=== PATIENT | male | born 1985 | race Caucasian/White ===

== ENCOUNTER 2024-07-10 16:10 | Observation (INO) ==
[2024-07-10] MEDS ORDERED: Ondansetron ODT 4 mg TAB 4 MG TAB SL ONE (16:33)
[2024-07-10] MEDS: Ondansetron 4 mg VIAL 2 MG/ML 2 ml VIAL IV ONE (16:43)
[2024-07-10 16:49] LABS: ABS Basophils 0.1 10^3/uL (0.0-0.1); ABS Lymphocytes 0.8 10^3/uL (1.0-4.8); ABS Monocytes 0.5 10^3/uL (0.0-1.1); ABS Neutrophils 9.4 10^3/uL (1.5-7.6); Eosinophil % 0.1 %; Hematocrit 37.9 % (38-53); Hemoglobin 12.7 g/dL (13.2-16.3); Lymphocyte % 7.7 %; Mean Corpuscular Hgb Conc 33.5 g/dL (31-36); Mean Corpuscular Volume 89.7 fL (80-97); Mean Platelet Volume 8.9 fL (7.5-11.2); Platelet Count 311 10^3/uL (150-450); Red Blood Count 4.23 10^6/uL (4.06-5.63); Red Cell Distribution Width 13.8 % (12-17); White Blood Count 10.8 10^3/uL (3.6-10.2)
[2024-07-10 16:56] LABS: Urine Appearance Clear; Urine Bilirubin Negative (Negative); Urine Blood Negative (Negative); Urine Color Light-Yellow; Urine Glucose Negative (Negative); Urine Ketones Negative (Negative); Urine Nitrite Negative (Negative); Urine Protein Negative (Negative); Urine Urobilinogen Negative (Negative)
[2024-07-10 17:44] LABS: Albumin 4.5 g/dL (3.2-5.2); Albumin/Globulin Ratio 1.7 (1-3); C Reactive Protein 35.77 mg/L (<8.01); Creatinine, Serum 0.69 mg/dL (0.67-1.17); Globulin 2.6 g/dL (2-4); Potassium 4.8 mmol/L (3.5-5.0); Total Bilirubin 0.6 mg/dL (0.2-1.0); Total Protein 7.1 g/dL (6.4-8.9); eGFR CKD-EPI 120.7 (>60)
[2024-07-10] MEDS: Morphine 4 MG/ML VIAL (1 ml) IV ONE (18:37)
[2024-07-10] MEDS: Piperacillin/Tazobac 3.375 BAG 3.375 GM/100 ML BAG IV ONE (18:40)
[2024-07-10] MEDS: NS 0.9% 1000 ml BAG 2,000 ML IV ONE (18:40)
[2024-07-10] MEDS: Iohexol 300 (CONTRAST) 10 ML SDV IV ONE (18:44)
[2024-07-10 20:17] LABS: ABS Basophils 0.1 10^3/uL (0.0-0.1); ABS Lymphocytes 0.7 10^3/uL (1.0-4.8); ABS Monocytes 0.3 10^3/uL (0.0-1.1); ABS Neutrophils 8.2 10^3/uL (1.5-7.6); Hematocrit 33.8 % (38-53); Hemoglobin 11.8 g/dL (13.2-16.3); Mean Corpuscular Hemoglobin 31.1 pg (27-33); Mean Corpuscular Hgb Conc 34.8 g/dL (31-36); Mean Corpuscular Volume 89.4 fL (80-97); Mean Platelet Volume 8.7 fL (7.5-11.2); Platelet Count 275 10^3/uL (150-450); Red Blood Count 3.78 10^6/uL (4.06-5.63); Red Cell Distribution Width 13.5 % (12-17); White Blood Count 9.3 10^3/uL (3.6-10.2)
[2024-07-10] MEDS: Acetaminophen IV 1 GM/100ML 1,000 MG/100 ML BAG IV ONE (20:29)
[2024-07-10 20:42] LABS: Urine Benzodiazepine Screen None Detected (None Detect); Urine Buprenorphine Screen None Detected (None Detect); Urine Cannabinoids Screen None Detected (None Detect); Urine Fentanyl Screen Presumptive Positive (None Detect); Urine Hydrocodone Screen None Detected (None Detect); Urine Opiates Screen Presumptive Positive (None Detect)
[2024-07-10] MEDS ORDERED: Zosyn per Pharmacy NOTE FOLLOW UP SCH (21:00)
[2024-07-10] MEDS: Morphine 4 MG/ML VIAL (1 ml) IV PRN (21:38)
[2024-07-10] MEDS: ZOSYN 3.375 GM Q8H per EXTENDED INFUSION IV SCH (23:18)
[2024-07-11] MEDS: Morphine 2 MG/ML SYRINGE IV PRN (04:02)
[2024-07-11 06:49] LABS: ABS Basophils 0.1 10^3/uL (0.0-0.1); ABS Monocytes 0.6 10^3/uL (0.0-1.1); Eosinophil % 0.1 %; Hematocrit 34.1 % (38-53); Lymphocyte % 13.6 %; Mean Corpuscular Hemoglobin 31.4 pg (27-33); Mean Corpuscular Hgb Conc 35.2 g/dL (31-36); Mean Corpuscular Volume 89.2 fL (80-97); Mean Platelet Volume 8.7 fL (7.5-11.2); Platelet Count 275 10^3/uL (150-450); Red Blood Count 3.82 10^6/uL (4.06-5.63); Red Cell Distribution Width 13.5 % (12-17); White Blood Count 7.7 10^3/uL (3.6-10.2)
[2024-07-11 07:31] LABS: Albumin 3.9 g/dL (3.2-5.2); Albumin/Globulin Ratio 1.6 (1-3); Creatinine, Serum 0.68 mg/dL (0.67-1.17); Globulin 2.5 g/dL (2-4); Magnesium 1.9 mg/dL (1.9-2.7); Potassium 3.7 mmol/L (3.5-5.0); Total Bilirubin 0.4 mg/dL (0.2-1.0); Total Protein 6.4 g/dL (6.4-8.9); eGFR CKD-EPI 121.3 (>60)
[2024-07-11] MEDS: NS 0.9% 1000 ml BAG 1,000 ML IV SCH (12:15)
[2024-07-11] MEDS ORDERED: Rocuronium 50 mg VIAL 10 mg/ml 5 ml VIAL (50 mg) ONE ×2 (15:18→15:28)
[2024-07-11] MEDS ORDERED: Lidocaine 1% MPF 5 ML VIAL ONE (15:18)
[2024-07-11] MEDS ORDERED: Midazolam 2 mg/2 ml VIAL 1 mg/ml 2 ml VIAL (2 mg) ONE (15:19)
[2024-07-11] MEDS ORDERED: fentaNYL 100 mcg/2 ml 50 MCG/ML VIAL ONE ×2 (15:19→17:52)
[2024-07-11] MEDS ORDERED: Dexamethasone IV 4 MG/ML VIAL 1 ml VIAL ONE (15:19)
[2024-07-11] MEDS ORDERED: Ondansetron 4 mg VIAL 2 MG/ML 2 ml VIAL ONE (15:19)
[2024-07-11] MEDS ORDERED: Propofol 10 MG/ML 20 ML BTL ONE ×2 (15:19)
[2024-07-11] MEDS ORDERED: Bupivacaine 0.25% EPI 200,000 30 ML SDV ONE (15:25)
[2024-07-11] MEDS ORDERED: Norepinephrine IV 1 MG/ML 4 ML VIAL ONE (16:19)
[2024-07-11] MEDS ORDERED: HYDROmorphone 0.5 MG/0.5 ML SYRINGE ONE ×2 (16:28→17:20)
[2024-07-11] MEDS ORDERED: Phenylephrine 40 mcg/mL 10mL (400mcg) SYRINGE ONE (17:00)
[2024-07-11] MEDS ORDERED: Acetaminophen IV 1 GM/100ML 1,000 MG/100 ML BAG IV ONE (17:23)
[2024-07-11] MEDS ORDERED: Metoclopramide 5 MG/ML VIAL (10 mg) IV PRN (17:45)
[2024-07-11] MEDS ORDERED: Naloxone 0.4 mg VIAL 0.4 mg/ml 1 ml VIAL IV PRN (17:45)
[2024-07-11] MEDS: fentaNYL 100 mcg/2 ml 50 MCG/ML VIAL IV PRN (17:53)
[2024-07-11] MEDS: Lactated Ringers 1000 ml BAG 1,000 ML IV SCH (20:00)
[2024-07-11] MEDS: Ondansetron 4 mg VIAL 2 MG/ML 2 ml VIAL IV PRN (20:37)
[2024-07-11] MEDS ORDERED: COWS Protocol Daily Order Reminder FOLLOW UP SCH (22:00)
[2024-07-11] MEDS: ZOSYN 3.375 GM Q8H per EXTENDED INFUSION IV SCH (22:54)
[2024-07-12] MEDS: Morphine 4 MG/ML VIAL (1 ml) IV PRN (04:04)
[2024-07-12 11:18] VITALS: BP 121/71
== END 2024-07-12 13:25 | disposition home or self-care (01) ==
LOC: ED 16:10 → EDHOLD 16:10 → SUATTDRO 20:14 → SSU 07-11 14:00
PROVIDERS: ADMIT Internal Medicine; ATTEND Student in an Organized Health Care Education/Training Program